=== PATIENT | male | born 1965 | race Caucasian/White ===

== ENCOUNTER 2021-08-31 06:48 | Day surgery (SDC) | payer OTHER ==
[~2021-08-31] VITALS: Ht 180.3 cm; Wt 109.0 kg
[~2021-08-31 06:48] MED LIST: ACETAMINOPHEN 500 MG TABLET PO PRN; BUSP30TA PO; HYDROmorphone 2 MG/ML VIAL IVP PRN; NAPR-514 PO; OMEP20TA8 PO; PROCHLORPERAZINE 10 MG/2 ML VIAL. IVP PRN; fentaNYL PF VIAL 100 MCG/2 ML VIAL IVP PRN
[2021-08-31] MEDS ORDERED: BUPIVACAINE-EPI 0.25%-1:200000 MPF 30 ML VIAL. ONE (06:58)
[2021-08-31] MEDS: IV RINGERS,LACTATED 1000ML 1,000 ML IV SCH ×2 (07:00→07:01)
[2021-08-31] MEDS ORDERED: IV RINGERS,LACTATED 1000ML 1,000 ML IV SCH (07:00)
[2021-08-31] MEDS ORDERED: PROPOFOL 10 MG/ML (20ML) VIAL. IV ONE (07:15)
[2021-08-31] MEDS ORDERED: MIDAZOLAM HCL/PF 2 MG/2 ML VIAL. ONE (07:16)
[2021-08-31] MEDS ORDERED: fentaNYL PF VIAL 100 MCG/2 ML VIAL ONE ×3 (07:16→09:33)
[2021-08-31] MEDS ORDERED: DEXAMETHASONE SOD PHOS 4 MG/ML VIAL ONE (07:16)
[2021-08-31] MEDS ORDERED: ROCURONIUM 50 MG/5 ML VIAL. ONE (07:22)
--- NOTE | 2021-08-31 07:41 | PDOC1 ---
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 Occasionally has significant pain at the bulge especially with activities Past Medical History Cardiovascular: No pertinent hx Pulmonary: No pertinent hx GI: No pertinent hx Heme/Onc: No pertinent hx Hepatobiliary: No pertinent hx Psych: No pertinent hx Rheumatologic: No pertinent hx Infectious disease: No pertinent hx ENT: No pertinent hx Renal/: No pertinent hx Endocrine: No pertinent hx Dermatology: No pertinent hx Past Surgical History Past Surgical History: No pertinent history Family History Family History: No Significant Social History Smoke: No ALCOHOL: none Drugs: None Current Medications Current Medications Current Medications Ringer's Solution 1,000 ml @ 50 mls/hr Q20H IV ; Start 08/31/21 at 07:00; Stop 08/31/21 at 18:59 Fentanyl Citrate (Fentanyl 2ml Vial) 25 mcg PRN Q5MIN PRN IVP MILD PAIN 1-3; Start 08/31/21 at 06:00; Stop 08/31/21 at 20:00 Fentanyl Citrate (Fentanyl 2ml Vial) 50 mcg PRN Q5MIN PRN IVP MODERATE PAIN 4- 6; Start 08/31/21 at 06:00; Stop 08/31/21 at 20:00 Morphine Sulfate (Morphine Sulfate) 1 mg PRN Q10MIN PRN IVP SEVERE PAIN 7-10; Start 08/31/21 at 06:00; Stop 08/31/21 at 20:00 Ringer's Solution 1,000 ml @ 30 mls/hr Q24H IV Last administered on 08/31/21at 07:01; Start 08/31/21 at 06:00; Stop 08/31/21 at 17:59 Hydromorphone HCl (Dilaudid) 0.5 mg PRN Q10MIN PRN IVP SEVERE PAIN 7-10, 2nd CHOICE; Start 08/31/21 at 06:00; Stop 08/31/21 at 20:00 Prochlorperazine Edisylate (Compazine) 5 mg PACU PRN PRN IVP NAUSEA, MRX1; Start 08/31/21 at 06:00; Stop 08/31/21 at 20:00 Acetaminophen (Tylenol) 1,000 mg 1X PREOP PRN PO PRIOR TO PROCEDURE Last administered on 08/31/21at 07:00; Start 08/31/21 at 06:00; Stop 08/31/21 at 18:00 Cefazolin Sodium/ Dextrose 50 ml @ 100 mls/hr 1X PREOP PRN IV PRIOR TO PROCEDURE; Start 08/31/21 at 06:00; Stop 08/31/21 at 18:00 Bupivacaine HCl/ Epinephrine Bitart (Sensorcaine-Epi 0.25%-1:[id number] Mpf) 30 ml STK-MED ONCE .ROUTE ; Start 08/31/21 at 06:58; Stop 08/31/21 at 06:59; Status DC Propofol (Diprivan) 200 mg STK-MED ONCE IV ; Start 08/31/21 at 07:15; Stop 08/31/21 at 07:16; Status DC Dexamethasone Sodium Phosphate (Decadron) 4 mg STK-MED ONCE .ROUTE ; Start 08/31/21 at 07:16; Stop 08/31/21 at 07:16; Status DC Fentanyl Citrate (Fentanyl 2ml Vial) 100 mcg STK-MED ONCE .ROUTE ; Start 08/31/21 at 07:16; Stop 08/31/21 at 07:17; Status DC Midazolam HCl (Versed) 2 mg STK-MED ONCE .ROUTE ; Start 08/31/21 at 07:16; Stop 08/31/21 at 07:17; Status DC Rocuronium [place] (Zemuron) 50 mg STK-MED ONCE .ROUTE ; Start 08/31/21 at 07:22; Stop 08/31/21 at 07:22; Status DC Active Scripts Active Reported Omeprazole 20 Mg Tablet.dr 20 Mg PO DAILY Buspirone Hcl 30 Mg Tablet 30 Mg PO DAILY Naproxen 500 Mg Tablet 500 Mg PO PRN BID PRN Allergies Allergies: Coded Allergies: No Known Drug Allergies (Unverified , 08/30/21) ROS Gastrointestinal: Yes Abdominal Pain Physical Exam General: Alert, Oriented X3, Cooperative, No acute distress HEENT: Atraumatic, EOMI Lungs: Clear to auscultation, Normal air movement Heart: RRR Abdomen: Normal bowel sounds, Soft, Other (Moderate sized bulge just above the umbilicus tender to palpation no skin changes) Rectal Exam: not examined Extremities: No edema Skin: No significant lesion Neuro: Normal speech Psych/Mental Status: Mental status NL Vitals Vitals Vital Signs Date Time Temp Pulse Resp B/P (MAP) Pulse Ox O2 Delivery O2 Flow Rate FiO2 08/31/21 06:46 97.6 66 14 152/89 94 Room Air 97.6 VTE Prophylaxis Ordered VTE Prophylaxis Devices: Yes VTE Pharmacological Prophylaxi: Contraindicated Assessment/Plan Assessment/Plan Ventral hernia plan repair robotic laparoscopic Justifications for Admission Other Justification RAYNA COREY MD Aug 31, 2021 07:41
[2021-08-31] MEDS ORDERED: SUCCINYLCHOLINE 200 MG/10 ML VIAL. ONE (07:51)
--- NOTE | 2021-08-31 09:21 | PDOC4 ---
Operative Note Operative Note Date: August 31, 2021 at 918 Preoperative diagnosis: Ventral incisional hernia Postoperative diagnosis: Same Procedure: Robotic assisted laparoscopic ventral hernia repair with mesh Surgeon: Alan Specimen: None Dictation: Patient is a 56-year-old gentleman who had a DPL for trauma several decades ago has now subsequently developed a hernia at the site. Procedure of robotic assisted laparoscopic ventral hernia repair with mesh was explained to the patient detail risk benefits were also discussed including bleeding infection injury to intra-abdominal contents possible necessitating further open operations alternatives to this procedure also discussed with patient who seemed to understand and gave both verbal and written consent to have procedure performed. Patient was taken to the operating room placed in supine position general anesthesia was initiated once patient was sleeping intubated his abdomen was prepped and draped usual sterile fashion using ChloraPrep. Area in the left upper quadrant was injected quarter percent Marcaine with epinephrine incision was made 11 blade scalpel and a 5 mm Visiport was placed under direct visualization in the abdomen creating pneumoperitoneum once this was complete 5 mm camera is placed within the abdomen which was inspected as noted the hernia in the midline. A 8 mm ventral port was placed in the left midabdomen and an 8 mm ventral port was placed in the left lower abdomen and the 5 mm Visiport was changed out for 8 mm ventral port. The da Daniel robot is brought and docked all port sites surgeon went to the robotic console using a grasper and Endo Torri scissors the incarcerated fat within the hernia defect were reduced. The hernia defect was then closed with a running 2 OV lock nonabsorbable suture. Ventral light ST mesh was then placed over the hernia defect this was sewn into place with a running 2 OV lock absorbable suture circumferentially. Sutures were then removed from the abdomen the da Daniel robot was undocked from all port sites all ports were removed the pneumoperitoneum was reduced all port sites were closed with 4 subcuticular Monocryl Mastisol Steri-Strips and island dressings were applied. Patient was awakened and extubated in the operating room taken to recovery in stable condition all sponge instrument needle counts listed as correct estimated blood loss 5 mL RAYNA COREY MD Aug 31, 2021 09:21
--- NOTE | 2021-08-31 09:23 | DISCH ---
DISCHARGE INSTRUCTIONS Condition on Discharge Condition on Discharge: Stable Activity After Discharge Activity Instructions for Disc: Avoid exertion Other activity instructions: No lifting more than 20 pounds for 2 weeks Diet after Discharge Diet after Discharge: Regular Wound Incision Care Other wound/incision instructi: Cele shower in 24-hour Contacting the after DC Call your doctor for: If your condition worsens Follow-Up Follow up with: Dr. Corey in 2-week RAYNA COREY MD Aug 31, 2021 09:23
[2021-08-31] MEDS ORDERED: MORPHINE SULFATE 2 MG/ML INJ. ONE (09:33)
[2021-08-31] MEDS: fentaNYL PF VIAL 100 MCG/2 ML VIAL IVP PRN ×2 (09:37→09:42)
[2021-08-31] MEDS: MORPHINE SULFATE 2 MG/ML INJ. IVP PRN ×2 (09:37→09:47)
[2021-08-31] MEDS ORDERED: HYDROcodone/APAP 5/325MG 1 TAB TABLET PO ONE (09:45)
[2021-08-31 10:05] VITALS: BP 136/76
== END 2021-08-31 10:15 | disposition home or self-care (01) ==
LOC: SURG 06:48 → EEVIPCON 08:00 → SURG 10:15
PROVIDERS: ATTEND Surgery
DX: K43.0 Incisional hernia with obstruction, without gangrene (principal); K21.9 Gastro-esophageal reflux disease without esophagitis; M19.90 Unspecified osteoarthritis, unspecified site; F32.9 Major depressive disorder, single episode, unspecified; Z87.891 Personal history of nicotine dependence; Z79.899 Other long term (current) drug therapy; Z98.890 Other specified postprocedural states
CPT/HCPCS: 49655; A4364; A4930; A6219; C1781; J0330; J0690; J1100; J2250; J2270; J2704; J3010; J3490; S2900; A4223; A4657